=== PATIENT | male | born 1945 | race Caucasian/White ===

== ENCOUNTER 2024-06-05 09:15 | Emergency (ER) | payer MEDICARE, SELFPAY ==
[2024-06-05 09:19] VITALS: BP 147/78; PULSE 93; RESP 16; TEMP 36.4; O2SAT 98
--- NOTE | 2024-06-05 09:22 | ED_ITS ---
HPI - Male Genitourinary General Chief complaint: Urogenital-Male Stated complaint: urinary problems Time Seen by Provider: 06/05/24 09:17 History of Present Illness HPI Narrative: Patient is a 79-year-old male who presents ER with concerns of urinary frequency. Worsening over last 3 weeks. Reports he can urinate overnight between 2 and 8 times. No dysuria. No lower abdominal pain. Has some difficulty with urination. Related Data Allergies Allergy/AdvReac Type Severity Reaction Status Date / Time No Known Allergies Allergy Verified 06/05/24 09:29 Review of Systems 2 Constitutional: Constitutional: Reports no additional constitutional complaints Gastrointestinal: Gastrointestinal: Reports no additional gastrointestinal complaints Genitourinary: Genitourinary: Reports oliguria, Denies dysuria, Reports u rinary frequency and Denies urinary incontinence Exam Narrative: GENERAL: Well-appearing, well-nourished, and in no acute distress. HEAD: Normocephalic, atraumatic. ENT: Mucous membranes moist. CHEST: Clear to auscultation. No respiratory distress. HEART: Regular rate and rhythm. Normal peripheral pulses. EXTREMITIES: Normal range of motion. Ambulates without difficulty. NEURO: Alert and oriented x3. PSYCH: Normal mood and affect. Course Course Emergency Course: No evidence of infection. Will start on Flomax and give urology referral. Vital Signs Vital signs: Vital Signs Temperature 97.5 F L 06/05/24 09:19 Pulse Rate 93 06/05/24 09:19 Respiratory Rate 16 06/05/24 09:19 Blood Pressure 147/78 H 06/05/24 09:19 Pulse Oximetry 98 06/05/24 09:19 Oxygen Delivery Room Air 06/05/24 09:19 Temperature 97.5 F L 06/05/24 09:19 Pulse Rate 93 06/05/24 09:19 Respiratory Rate 16 06/05/24 09:19 Blood Pressure 147/78 H 06/05/24 09:19 Pulse Oximetry 98 06/05/24 09:19 Oxygen Delivery Room Air 06/05/24 09:19 MDM - Male Genitourinary Lab Data Labs: Lab Results 06/05/24 Range/Units 10:08 Urine Color Yellow (Yellow) Urine Appearance Clear (Clear) Urine pH 6.5 (5.0-9.0) Ur Specific [place] 1.023 (1.001-1.035) Urine Protein Negative (Negative) mg/dL Urine Glucose (UA) Negative (Negative) mg/dL Urine Ketones Negative (Negative) mg/dL Ur Blood (Man) Negative (Negative) Urine Nitrate Negative (Negative) Urine Bilirubin Negative (Negative) Urine Urobilinogen 0.2 (<2.0) mg/dL Leukocyte Esterase Rfl Negative (Negative) CRESENCIO/UL Discharge Plan Discharge Clinical Impression: Benign prostatic hyperplasia Patient Disposition: Home, Self-Care Condition: Stable Instructions: Enlarged Prostate (BPH) (ED) Additional Instructions: Return the ER if he cannot urinate, have fever over 100.4? F, you lose consciousness, or have additional concerns. Prescriptions: New tamsulosin 0.4 mg capsule 0.4 mg PO DAILY Qty: 30 0RF Follow-up/Referrals: Abisai Burt MD [Physician] - 1 Week PHYSICIAN NOT ON STAFF,NONSTAFF [Non-Staff] -
[2024-06-05 10:14] LABS: Appearance Urine Clear (Clear); Bilirubin Urine Negative (Negative); Blood Urine Negative (Negative); Color Urine Yellow (Yellow); Glucose Urine UA Negative (Negative); Ketones Urine Negative (Negative); Leukocyte Esterase Ur Negative LEU/UL (Negative); Nitrate Urine Negative (Negative); Protein Urine Negative (Negative); Specific Grav Ur 1.023 (1.001-1.035); Urobilinogen Urine 0.2 mg/dL (<2.0); pH Urine 6.5 (5.0-9.0)
[2024-06-05 10:23] LABS: Add Urine Microscopic? NO
== END 2024-06-05 10:50 | disposition home or self-care (01) ==
PROVIDERS: Emergency Provider Emergency Medicine; PCP Student in an Organized Health Care Education/Training Program
DX: N40.0 Benign prostatic hyperplasia without lower urinary tract symptoms (principal)
CPT/HCPCS: 81003; 99283